=== PATIENT | female | born 1990 | race Caucasian/White ===

== ENCOUNTER → 2020-12-05 | Outpatient (CLI) | payer MEDICAID, OTHER ==
--- NOTE | 2020-12-05 15:20 | REPPI ---
INDICATION: [id number] HISTORY OF SMALL RENAL CALCULI COMPARISON: None. TECHNIQUE: Supine view of the abdomen and pelvis. FINDINGS: Bowel gas pattern is nonspecific and without obstruction or perforation. No organomegaly. No obvious renal calculi appreciated. Skeletal structures intact. IUD in satisfactory position. IMPRESSION: No obvious renal calculi. <Electronically signed by Luis Armando Bearden > 12/05/20 1340
== END ==
LOC: M PLAIMG 15:01
PROVIDERS: ATTEND Urology
DX: Z87.442 Personal history of urinary calculi (principal); Z97.5 Presence of (intrauterine) contraceptive device

== ENCOUNTER → 2021-03-11 | Outpatient (REF) | payer OTHER ==
[2021-03-11 21:07] LABS: APPEARANCE, URINE CLEAR (CLEAR); BACTERIA, URINE AUTO NEGATIVE (NEGATIVE); BILIRUBIN, URINE AUTO NEGATIVE (NEGATIVE); BLOOD, URINE BLOOD NEGATIVE (NEGATIVE); COLOR, URINE STRAW (YELLOW); GLUCOSE, URINE (UA) AUTO NEGATIVE (NEGATIVE); KETONE, URINE AUTO NEGATIVE (NEGATIVE); LEUKOCYTE ESTERASE, URINE AUTO NEGATIVE (NEGATIVE); NITRITE, URINE AUTO NEGATIVE (NEGATIVE); PROTEIN, URINE AUTO NEGATIVE (NEGATIVE); RBC, URINE AUTO 0 /HPF (0-3); SPECIFIC GRAVITY URINE AUTO 1.003 (1.002-1.035); SQUAMOUS EPITHELIAL CELL UR AU 0 /HPF (0-6); UROBILINOGEN, URINE AUTO 0.2 mg/dL (0.0-2.0); WBC, URINE AUTO 1 /HPF (0-3)
== END ==
LOC: M SMT 16:56
PROVIDERS: ATTEND Urology
DX: R39.89 Other symptoms and signs involving the genitourinary system (principal)